=== PATIENT | male | born 1960 | race African-American/Black ===

== ENCOUNTER 2018-07-07 18:30 | Emergency (ER) | payer MEDICAID ==
[~2018-07-07] VITALS: Ht 175.3 cm; Wt 72.6 kg
[2018-07-07] MEDS ORDERED: LORazepam 1mg tab ORAL ONE (18:45)
[2018-07-07] MEDS ORDERED: Phenytoin 500 MG in NS 110 ML IV ONE (18:45)
--- NOTE | 2018-07-07 18:46 | Emergency Room Report ---
History of Present Illness General Source: Patient, EMS Present Illness HPI Patient presents after having a seizure. He was transported here by paramedics. Accu-Chek was normal in the field. He supposed be taking Dilantin but hasn't for several days. Also he was drinking alcohol recently. He denies any trauma. His friends witnessed tonic clonic seizure. There is no incontinence and no trauma. He vomited once before transport. He has a h/o seizures. S/P stroke. Also has chronic lung disease. Has had CTs which reveal scarring. No fevers, headache, tongue trauma, spine tenderness, rashes, joint pain, depression. Allergies: Coded Allergies: No Known Allergies (Unverified , 07/07/18) Patient History Past Medical History: see triage record Social History: Reports: alcohol use; Denies: smoking, drug use Social History Narrative born in [facility] Reviewed Nursing Documentation: PMH: Agreed; PSxH: Agreed Review of Systems All Other Systems: negative except mentioned in HPI Physical Exam Vital Signs Date Time Temp Pulse Resp B/P (MAP) Pulse Ox O2 Delivery O2 Flow Rate FiO2 07/07/18 18:47 98.1 95 14 125/82 95 Room Air 98.1 Sp02 EP Interpretation: reviewed, normal General Appearance: well appearing, no apparent distress, GCS 15 Head: normocephalic, atraumatic Eyes: bilateral eye normal inspection, bilateral eye PERRL, bilateral eye EOMI ENT: moist mucus membranes - No lingual macerations Neck: full range of motion, supple Respiratory: chest non-tender, lungs clear, normal breath sounds Cardiovascular #1: regular rate, rhythm Cardiovascular #2: 2+ radial (R) Gastrointestinal: normal inspection, normal bowel sounds, non tender, no mass, non-distended Musculoskeletal: back normal, normal range of motion Neurologic: alert, oriented x3, cell attendant helper III-XII nml as tested, motor strength/tone normal, DTRs symmetric, sensory intact, cerebellar normal, speech normal Psychiatric: mood/affect normal Skin: normal inspection, warm/dry Medical Decision Making Diagnostic Impression: Primary Impression: Seizure Additional Impressions: Hypokaluria Non compliance with medical treatment UTI (urinary tract infection) Qualified Codes: N30.00 - Acute cystitis without hematuria ER Course Patient presents after a witnessed seizure. Differential includes breakthrough seizure, subtherapeutic Dilantin level, electrolyte abnormality, cardiac arrhythmia, brain bleed amongst others. The patient will be evaluated with CT, chest x-ray, EKG and labs. Patient will be given a dose of Ativan here and then also given a half loading dose of Dilantin IV. We'll be waiting for levels to determine if he needs more Dilantin after that. EKG no injury. CXR scarring and nodular changes. Labs with low WBC and lymphocytosis, good H/H. CMP with low potassium. UA with pyuria. Rocephin given. Potassium also given. He states he has had extensive w/u of lungs with CT of chest. States "scarring ". CT head with occipital encephalomalacia. c/w prior stroke. Suggested admission in light of low potassium and UTI. Patient wants to be treated at home. Patient stable for outpatient observation and treatment. Laboratory Tests Test 07/07/18 18:40 07/07/18 19:24 White Blood Count 5.2 K/UL (4.8-10.8) Red Blood Count 4.83 M/UL (4.70-6.10) Hemoglobin 14.3 G/DL (14.2-18.0) Hematocrit 43.8 % (42.0-52.0) Mean Corpuscular Volume 91 FL (80-99) Mean Corpuscular Hemoglobin 29.6 PG (27.0-31.0) Mean Corpuscular Hemoglobin Concent 32.7 G/DL (32.0-36.0) Red Cell Distribution Width 14.8 % (11.6-14.8) Platelet Count 188 K/UL (150-450) Mean Platelet Volume 7.3 FL (6.5-10.1) Neutrophils (%) (Auto) % (45.0-75.0) Lymphocytes (%) (Auto) % (20.0-45.0) Monocytes (%) (Auto) % (1.0-10.0) Eosinophils (%) (Auto) % (0.0-3.0) Basophils (%) (Auto) % (0.0-2.0) Differential Total Cells Counted 100 Neutrophils % (Manual) 26 % (45-75) L Lymphocytes % (Manual) 65 % (20-45) H Monocytes % (Manual) 3 % (1-10) Eosinophils % (Manual) 6 % (0-3) H Basophils % (Manual) 0 % (0-2) Band Neutrophils 0 % (0-8) Platelet Estimate Adequate Platelet Morphology Normal Red Blood Cell Morphology Normal Sodium Level 143 MMOL/L (136-145) Potassium Level 2.7 MMOL/L (3.5-5.1) *L Chloride Level 109 MMOL/L (98-107) H Carbon Dioxide Level 18 MMOL/L (21-32) L Anion Gap 15 mmol/L (5-15) Blood Urea Nitrogen 10 mg/dL (7-18) Creatinine 0.8 MG/DL (0.55-1.30) Estimate Glomerular Filtration Rate > 60 mL/min (>60) Glucose Level 74 MG/DL (74-106) Calcium Level 7.1 MG/DL (8.5-10.1) L Total Bilirubin 0.5 MG/DL (0.2-1.0) Aspartate Amino Transferase (AST) 60 U/L (15-37) H Alanine Aminotransferase (ALT) 33 U/L (12-78) Alkaline Phosphatase 197 U/L (46-116) H Total Creatine Kinase 210 U/L (26-308) Troponin I 0.000 ng/mL (0.000-0.056) Total Protein 6.4 G/DL (6.4-8.2) Albumin 2.4 G/DL (3.4-5.0) L Globulin 4.0 g/dL Albumin/Globulin Ratio 0.6 (1.0-2.7) L Salicylates Level 0.2 ug/mL (2.8-20) L Acetaminophen Level < 2 MCG/ML (10-30) L Phenytoin (Dilantin) Level < 0.5 ug/mL (10-20) L Serum Alcohol < 3 mg/dL Urine Color Thuy Urine Appearance Slightly cloudy Urine pH 5 (4.5-8.0) Urine Specific [place] 1.030 (1.005-1.035) Urine Protein 2+ (NEGATIVE) H Urine Glucose (UA) Negative (NEGATIVE) Urine Ketones 1+ (NEGATIVE) H Urine Blood 1+ (NEGATIVE) H Urine Nitrite Negative (NEGATIVE) Urine Bilirubin 1+ (NEGATIVE) H Urine Ictotest Negative (NEGATIVE) Urine Urobilinogen 4 MG/DL (0.0-1.0) H Urine Leukocyte Esterase 1+ (NEGATIVE) H Urine RBC 2-4 /HPF (0 - 0) H Urine WBC 5-10 /HPF (0 - 0) H Urine Squamous Epithelial Cells Few /LPF (NONE/OCC) Urine Calcium Oxalate Crystals Many /LPF (NONE) Urine Amorphous Sediment Moderate /LPF (NONE) H Urine Bacteria Few /HPF (NONE) Urine Opiates Screen Negative (NEGATIVE) Urine Barbiturates Screen Negative (NEGATIVE) Phencyclidine (PCP) Screen Negative (NEGATIVE) Urine Amphetamines Screen Negative (NEGATIVE) Urine Benzodiazepines Screen Negative (NEGATIVE) Urine Cocaine Screen Negative (NEGATIVE) Urine Marijuana (THC) Screen Negative (NEGATIVE) EKG Diagnostic Results Rate: normal Rhythm: NSR ST Segments: no acute changes Rhythm Strip Diag. Results EP Interpretation: yes Rhythm: NSR, no PVC's, other - pacs Chest X-Ray Diagnostic Results Chest X-Ray Diagnostic Results : Chest X-Ray Ordered: Yes # of Views/Limited/Complete: 1 View Indication: Other Interpretation: no effusion, no pneumothorax, other - extensive scarring and nodules CT/MRI/US Diagnostic Results CT/MRI/US Diagnostic Results : Imaging Test Ordered: ct head Impression no bleed or mass - R occipital encephalomalacia Last Vital Signs Date Time Temp Pulse Resp B/P (MAP) Pulse Ox O2 Delivery O2 Flow Rate FiO2 07/07/18 21:41 98.0 80 14 122/79 97 Room Air 98.0 Status: improved Disposition: HOME, SELF-CARE Condition: Improved Scripts Nitrofurantoin Monohyd/M-Cryst* (MACROBID 100 MG*) 100 Mg Capsule 100 MG ORAL EVERY 12 HOURS, #14 CAP Prov: Magdy Madrid M.D. 07/07/18 Potassium Chloride* (K-DUR*) 20 Meq Tab.er.prt 20 MEQ ORAL TWICE A DAY, #14 TAB 1 Refill Prov: Magdy Madrid M.D. 07/07/18 Phenytoin Sodium Extended* (DILANTIN*) 100 Mg Capsule 300 MG ORAL BEDTIME, #90 CAP Prov: Magdy Madrid M.D. 07/07/18 Magdy Madrid M.D. Jul 07, 2018 18:46
[2018-07-07] MEDS ORDERED: DILANTIN100 MG ORAL ×2 (18:51→21:24)
[2018-07-07 19:08] LABS: HEMATOCRIT 43.8 % (42.0-52.0); HEMOGLOBIN 14.3 G/DL (14.2-18.0); MEAN CORPUSCULAR VOLUME 91 FL (80-99); PLATELET COUNT 188 K/UL (150-450); RED BLOOD COUNT 4.83 M/UL (4.70-6.10); RED CELL DISTRIBUTION WIDTH 14.8 % (11.6-14.8); WHITE BLOOD COUNT 5.2 K/UL (4.8-10.8)
[2018-07-07 19:13] VITALS: BP 125/82
[2018-07-07 19:18] LABS: ALANINE AMINOTRANSFERASE 33 U/L (12-78); ALBUMIN 2.4 G/DL (3.4-5.0); ALBUMIN/GLOBULIN RATIO 0.6 (1.0-2.7); ALKALINE PHOSPHATASE 197 U/L (46-116); ANION GAP 15 mmol/L (5-15); ASPARTATE AMINO TRANSFERASE 60 U/L (15-37); BILIRUBIN,TOTAL 0.5 MG/DL (0.2-1.0); BLOOD UREA NITROGEN 10 mg/dL (7-18); CALCIUM 7.1 MG/DL (8.5-10.1); CARBON DIOXIDE 18 MMOL/L (21-32); CHLORIDE 109 MMOL/L (98-107); CREATINE KINASE 210 U/L (26-308); CREATININE 0.8 MG/DL (0.55-1.30); SODIUM 143 MMOL/L (136-145)
[2018-07-07 19:24] LABS: POTASSIUM 2.7 MMOL/L (3.5-5.1)
[2018-07-07 19:46] LABS: APPEARANCE,URINE SLIGHTLY CLOUDY; BILIRUBIN, URINE 1+ (NEGATIVE); GLUCOSE, URINE (UA) NEGATIVE (NEGATIVE); KETONES,URINE 1+ (NEGATIVE); LEUKOCYTE ESTERASE ,URINE 1+ (NEGATIVE); NITRITE,URINE NEGATIVE (NEGATIVE); PH,URINE 5 (4.5-8.0); PROTEIN,URINE 2+ (NEGATIVE); UROBILINOGEN,URINE 4 MG/DL (0.0-1.0)
[2018-07-07 19:48] LABS: COLOR,URINE AMBER
--- NOTE | 2018-07-07 20:02 | Diagnostic Imaging Report ---
EXAM: CT Head Without Intravenous Contrast CLINICAL HISTORY: SZ TECHNIQUE: Axial computed tomography images of the head/brain without intravenous contrast. One or more of the following dose reduction techniques were used: automated exposure control, adjustment of the mA and/or kV according to patient size, use of iterative reconstruction technique. CT DI 70.4 DLP 1418 COMPARISON: No relevant prior studies available. FINDINGS: Brain: No intracranial hemorrhage or mass effect. Encephalomalacia to the medial right occipital lobe with a dystrophic calcification. Small chronic infarcts in the left basal ganglia. Mild generalized atrophy. Ventricles: Mild ex vacuo dilation of the frontal horn of the left lateral ventricle due to adjacent small infarcts. Bones/joints: Unremarkable. No acute fracture. Soft tissues: Unremarkable. Sinuses: Unremarkable as visualized. No acute sinusitis. Mastoid air cells: Unremarkable as visualized. No mastoid effusion. IMPRESSION: No acute intracranial process. Right occipital lobe encephalomalacia. Chronic basal ganglia infarcts.
--- NOTE | 2018-07-07 20:17 | Diagnostic Imaging Report ---
EXAM: XR Chest, 1 View CLINICAL HISTORY: SZ TECHNIQUE: Frontal view of the chest. COMPARISON: No relevant prior studies available. FINDINGS: Lungs: Extensive pleural/parenchymal scarring. Presumed emphysema. Patchy airspace opacities more so involving the left lung. 2.9 cm oval nodular focus at the left apex. Presumed attachment to the pleura. There is also a dense smaller nodule measuring 6 mm in the right midlung. Central vascular congestion. Pleural space: No pneumothorax. Heart: No cardiomegal Bones/joints: Unremarkable. IMPRESSION: Extensive scarring and nodular densities, largest at the left apex measuring 2.[address] could further assess. Central vascular congestion.
[2018-07-07 21:00] VITALS: BP 122/79
[2018-07-07] MEDS ORDERED: cefTRIAXone 1 GM in NS 55 ML IVPB ONE (21:00)
[2018-07-07] MEDS ORDERED: Phenytoin 100mg cap ORAL ONE (21:15)
[2018-07-07] MEDS ORDERED: NITROFURANTOIN100 M2 ORAL (21:24)
[2018-07-07] MEDS ORDERED: POTASSIUM CHLO20 ME1 ORAL (21:24)
[2018-07-07 21:41] VITALS: BP 122/79
--- NOTE | 2018-07-08 13:49 | Cardiology Report ---
APPROVED REPORT EKG Measurement Heart [id number] Sinus rhythm with premature atrial complexes Otherwise normal ECG
== END 2018-07-07 21:41 | disposition home or self-care (01) ==
LOC: EDBD 18:30 → EMR 18:49
DX: G40.909 Epilepsy, unspecified, not intractable, without status epilepticus (principal); N39.0 Urinary tract infection, site not specified; Z91.14 Patient's other noncompliance with medication regimen
CPT/HCPCS: 36415; 70450; 71045; 80053; 80185; 80307; 80329; 81003; 82550; 84484; 85007; 85025; 93005; 96365; 96367; 99285; J0696; J1165; J8499